=== PATIENT | female | born 1975 | race Caucasian/White ===

== ENCOUNTER 2021-02-10 16:42 | Emergency (ER) | payer MEDICAID ==
[~2021-02-10] VITALS: Ht 154.9 cm; Wt 66.2 kg
[2021-02-10 16:46] VITALS: BP 137/48
--- NOTE | 2021-02-10 17:09 | NUR ---
PA TEJEDA BEDSIDE SPEAKING WITH/EVAULATING PT
--- NOTE | 2021-02-10 17:09 | NUR ---
Female English Lecturer accompanied female patient for BREAST Exam FOR RE TEJEDA.
--- NOTE | 2021-02-10 17:15 | NUR ---
45YO F C/O LEFT BREAST ABSCESS X 3 MONTHS. (+)INCREASE IN SIZE, (+)BLEEDING, (+)DISCARGE, (+)PAIN 8/10. PT TAKES ADVIL FOR PAIN. PT HAD MAMMOGRAM DONE 2 YEARS AGO, WITH NORMAL RESULTS. UPON ASSESSMENT ABCESS IS LARGE IN SIZE WITH REDNESS SURROUNDING THE AREA. PT DENIES ANY PAIN, BUT STATES THERE IS SOME DISCOMFORT. NIPPLE RETRACTION NOTED PMH: NONE MEDS: NONE NKA
[2021-02-10] MEDS ORDERED: IBUP-2213 PO ×2 (17:22→17:29)
[2021-02-10] MEDS ORDERED: ACET-8386 PO ×2 (17:22→17:29)
--- NOTE | 2021-02-10 17:48 | NUR ---
Patient discharged with v/s stable. Written and verbal after care instructions ABOUT BREAST CYST AND MEDICATIONS given and explained. Patient alert, oriented and verbalized understanding of instructions. Ambulatory with steady gait. All questions addressed prior to discharge. ID band removed. Patient advised to follow up with PMD. Rx of IBUPROFEN AND NORCO 5*325MG given. Patient educated on indication of medication including possible reaction and side effects. Opportunity to ask questions provided and answered.
== END 2021-02-10 17:48 | disposition home or self-care (01) ==
LOC: MED 16:42
DX: N63.20 Unspecified lump in the left breast, unspecified quadrant (principal); Z79.1 Long term (current) use of non-steroidal anti-inflammatories (NSAID); Z79.891 Long term (current) use of opiate analgesic
CPT/HCPCS: 99284